=== PATIENT | male | born 2000 | race Caucasian/White ===

== ENCOUNTER 2021-01-19 15:52 | Emergency (ER) | payer MEDICAID ==
[~2021-01-19 15:52] MED LIST: BACTRIM DS TAB1 EACH PO; KEFLEX CAP 500500 MG PO; LODINE CAP 300300 MG PO
== END 2021-01-19 18:09 | disposition home or self-care (01) ==
LOC: ER1 15:52
DX: J06.9 Acute upper respiratory infection, unspecified (principal); Z20.822 Contact with and (suspected) exposure to COVID-19; F17.210 Nicotine dependence, cigarettes, uncomplicated; J45.909 Unspecified asthma, uncomplicated
CPT/HCPCS: 71045; 87081; 87880; 94664; 99284; U0002

== ENCOUNTER 2021-10-07 17:29 | Emergency (ER) | payer SELFPAY ==
[2021-10-08] MEDS ORDERED: AMOXICILLIN500 M1 PO (19:35)
[2021-10-08] MEDS ORDERED: IBUPROFEN800 MG PO (19:35)
== END 2021-10-07 20:55 | disposition left against medical advice (07) ==
LOC: ER1 17:29
DX: Z53.21 Procedure and treatment not carried out due to patient leaving prior to being seen by health care provider (principal)

== ENCOUNTER 2021-10-08 17:12 | Emergency (ER) | payer OTHER ==
[~2021-10-08] VITALS: Ht 170.2 cm; Wt 74.8 kg
[2021-10-08] MEDS ORDERED: AMOXICILLIN500 M1 PO (19:35)
[2021-10-08] MEDS ORDERED: IBUPROFEN800 MG PO (19:35)
== END 2021-10-08 20:15 | disposition home or self-care (01) ==
LOC: ER1 17:12
DX: U07.1 COVID-19 (principal); J06.9 Acute upper respiratory infection, unspecified; H65.93 Unspecified nonsuppurative otitis media, bilateral; F17.200 Nicotine dependence, unspecified, uncomplicated
CPT/HCPCS: 99282